=== PATIENT | male | born 2000 | race Caucasian/White ===

== ENCOUNTER 2020-05-19 14:12 | Outpatient (CLI) | payer BC, SELFPAY ==
--- NOTE | ~2020-05-19 | XR_ITS ---
XR chest 2V DATE: 05/19/2020 14:52 INDICATION: Night sweats, fatigue, body aches TECHNIQUE: PA and lateral views COMPARISON: None FINDINGS: Bilateral hyperinflation. No pulmonary infiltrate or consolidation, pleural effusion or pul monary vascular congestion or pneumothorax. Normal heart size. No hilar or mediastinal enlargement. IMPRESSION: Bilateral hyperinflation Reviewed, dictated and finalized at location A. IMPRESSION: Bilateral hyperinflation
[2020-05-19 15:50] LABS: Basophils Absolute Auto 0.1 K/mm3 (0.0-0.1); Basophils Percent Auto 0.9 % (0.2-1.2); Eosinophils Absolute Auto 0.3 K/mm3 (0-0.3); Eosinophils Percent Auto 3.8 % (0-4.4); Hematocrit 47.6 % (42.0-52.0); Hemoglobin 16.2 g/dL (14.0-18.0); Immature Granulocyte Absolute 0.01 K/mm3 (0.00-0.031); Immature Granulocyte Percent A 0.2 % (0-0.5); Lymphocytes Absolute Auto 2.07 K/mm3 (0.9-3.2); Lymphocytes Percent Auto 31.8 % (18.3-44.2); Mean Corpuscular Hemoglobin 30.7 pg (26-34); Mean Corpuscular Volume 90.2 fl (80-100); Mean Platelet Volume 9.6 fl (7.4-10.4); Monocytes Absolute Auto 0.7 K/mm3 (0.1-0.6); Monocytes Percent Auto 10.6 % (2.6-8.5); Neutrophils Absolute Auto 3.4 K/mm3 (1.3-6.7); Neutrophils Percent Auto 52.7 % (45.5-73.1); Platelet Count Result 306 k/mm3 (150-375); Red Blood Count 5.28 M/mm3 (4.6-6.20); Red Cell Distribution Width 12.4 % (11.5-14.5); White Blood Count 6.5 K/mm3 (4.5-10.0)
[2020-05-19 16:00] LABS: Alanine Aminotransferase 17 U/L (4-50); Albumin Level 5.2 g/dL (3.5-5.1); Alkaline Phosphatase 81 U/L (38-126); Anion Gap 10 mmol/L (8-16); Aspartate Amino Transferase 21 U/L (17-59); Blood Urea Nitrogen 13 mg/dL (9-20); Calcium 9.6 mg/dL (8.4-10.2); Carbon Dioxide 30 mmol/L (22-30); Chloride 101 mmol/L (98-107); Estimated Glomerular Filt Rate > 60; Glucose 81 mg/dL (75-110); Potassium 3.9 mmol/L (3.4-5.0); Sodium 141 mmol/L (137-145)
[2020-05-19 16:04] LABS: Immunoglobulin G 1100 mg/dL (700-1600); Immunoglobulin M 86 mg/dL (40-230)
== END 2020-05-19 14:13 | disposition home or self-care (01) ==
PROVIDERS: PCP Physician Assistant; Visit Provider Physician Assistant
DX: R53.83 Other fatigue (principal); R61 Generalized hyperhidrosis; R51 Headache; R91.8 Other nonspecific abnormal finding of lung field
CPT/HCPCS: 36415; 71046; 80053; 82784; 84443; 85025

== ENCOUNTER 2020-05-20 12:43 | Outpatient (CLI) | payer BC, SELFPAY ==
[2020-05-20 14:06] LABS: Iron 254 ug/dL (49-181)
[2020-05-20 23:21] LABS: Folic Acid 13.3 ng/mL (2.76->20)
[2020-05-24 15:33] LABS: EBV Nuclear Ab Interpretation Past; EBV Virus Capsid Ag IgM Ab <36.00 U/mL (<36.00)
== END 2020-05-20 12:44 | disposition home or self-care (01) ==
PROVIDERS: PCP Physician Assistant; Visit Provider Physician Assistant
DX: R53.83 Other fatigue (principal); R51 Headache
CPT/HCPCS: 36415; 82607; 82746; 83540; 84436; 86664; 86665

== ENCOUNTER 2020-07-19 16:39 | Emergency (ER) | payer BC, SELFPAY ==
[2020-07-19 16:48] VITALS: BP 138/76; PULSE 96; RESP 16; TEMP 37.6; O2SAT 99
--- NOTE | 2020-07-19 16:52 | ED.URI ---
HPI - URI/Sore Throat General Chief Complaint: Upper Respiratory Infection Stated Complaint: cough headache and sore throat Source: patient Mode of arrival: ambulatory Limitations: no limitations History of Present Illness HPI Narrative: Patient is a 20-year-old male who presents complaining of sore throat, cough, congestion and headache x2 days. He denies taking [id number] medications for relief. He denies known exposure to Covid. Patient in no acute distress MD elicited complaint: cough, sore throat and other Related Data Home Medications Medication Instructions Recorded Confirmed No Home Medications 07/19/20 07/19/20 Allergies Allergy/AdvReac Type Severity Reaction Status Date / Time No Known Allergies Allergy Verified 07/19/20 16:59 Review of Systems Review of Systems: Narrative: CONSTITUTIONAL: Denies fever, chills, or sweats. EYES: Denies visual changes, redness, or discharge. ENT: Denies rhinorrhea, congestion, sore throat, or otalgia. CARDIOVASCULAR: Denies chest pain, palpitations, or edema. RESPIRATORY: Reports cough, denies dyspnea. GASTROINTESTINAL: Denies abdominal pain, nausea, vomiting, or diarrhea. GENITOURINARY: Denies dysuria or hematuria. SKIN: Denies rash or itching. MUSCULOSKELETAL: Denies back pain, joint pain, or myalgia. NEUROLOGIC: Reports headache, denies numbness, dizziness, or weakness. PSYCHIATRIC: Denies anxiety or depression. [facility] Past Medical History Medical History (Updated 07/19/20 @ 17:06 by ASHLYN Fraser) Seasonal allergies Social History Social History (Updated 07/19/20 @ 16:56 by ASHLYN Fraser) Smoking status: Never smoker Alcohol intake: never Substance use: never Living arrangements: with family Exam Narrative: Exam Narrative: GENERAL: Well-appearing, well-nourished, and in no acute distress. HEAD: Normocephalic, atraumatic. EYES: No redness or drainage. ENT: Mucous membranes pink and moist. Throat normal mild erythema. Uvula midline. NECK: AROM. Supple. No lymphadenopathy. CHEST: No respiratory distress. EXTREMITIES: Normal range of motion. SKIN: Warm, dry, no rash. NEURO: No focal deficits. Alert and oriented x3. Gait steady. PSYCH: Normal affect. No signs of depression or anxiety. Course Vital Signs Vital signs: Vital Signs Temperature 37.6 C 07/19/20 16:48 Pulse Rate 96 07/19/20 16:48 Respiratory Rate 16 07/19/20 16:48 Blood Pressure 138/76 07/19/20 16:48 Pulse Oximetry 99 07/19/20 16:48 Temperature 37.6 C 07/19/20 16:48 Pulse Rate 96 07/19/20 16:48 Respiratory Rate 16 07/19/20 16:48 Blood Pressure 138/76 07/19/20 16:48 Pulse Oximetry 99 07/19/20 16:48 Reviewed. Patient has been instructed to follow-up with his PCP regarding his blood pressure. MDM - URI/Sore Throat MDM Narrative Medical decision making narrative: Patient's influenza and rapid strep are negative. Discussed with patient the need for Covid testing at this time. Patient of the need for quarantine until Covid testing and results completed. Patient is stable for discharge to home with outpatient follow-up as needed. Differential Diagnosis Differential diagnosis: Likely upper respiratory infection, sinusitis, viral infection, influenza and pharyngitis Critical Care Time Critical Care Time Critical Care Time: No Discharge Plan Discharge Clinical Impression: Encounter for screening laboratory testing for COVID-19 virus Upper respiratory infection Qualifiers: URI type: unspecified URI Qualified Code(s): J06.9 - Acute upper respiratory infection, unspecified Patient Disposition: Home, Self-Care Condition: Stable Instructions: Antibiotic Form Additional Instructions: You may take Tylenol or ibuprofen for pain. Please stay well-hydrated. Covid testing has been ordered. Quarantine until Covid testing is completed. Prescriptions: No Action No Home Medications RF: 0 Other
== END 2020-07-19 17:10 | disposition home or self-care (01) ==
PROVIDERS: Emergency Provider Nurse Practitioner; PCP Physician Assistant
DX: Z20.828 Contact with and (suspected) exposure to other viral communicable diseases (principal); J06.9 Acute upper respiratory infection, unspecified
CPT/HCPCS: 87081; 87804; 87880; 99213; G0463

== ENCOUNTER 2020-07-21 06:51 | Outpatient (NON) | payer BC, SELFPAY ==
[2020-07-22 00:29] LABS: SARS-CoV-2 RNA PCR Negative
== END 2020-07-21 06:52 ==
LOC: ANHCOVIDDT 07:00
PROVIDERS: PCP Physician Assistant; Visit Provider Nurse Practitioner
DX: Z20.828 Contact with and (suspected) exposure to other viral communicable diseases (principal)
CPT/HCPCS: 87635; C9803; U0003

== ENCOUNTER 2020-08-05 11:32 | Emergency (ER) | payer BC, SELFPAY | END 2020-08-05 11:34 | disposition left against medical advice (07) | LOC: EXPBETH 11:38 | PROVIDERS: Emergency Provider Nurse Practitioner; PCP Physician Assistant | DX: Z53.21 Procedure and treatment not carried out due to patient leaving prior to being seen by health care provider (principal) | CPT/HCPCS: 99199 ==

== ENCOUNTER 2020-08-05 12:02 | Emergency (ER) | payer BC, SELFPAY ==
--- NOTE | ~2020-08-05 | XR_ITS ---
EXAMINATION: XR chest 1V portable 08/05/2020 13:19 INDICATION: Chest pain, cough and shortness of breath PROCEDURE: AP portable chest COMPARISON: 05/19/2020 FINDINGS: The lungs are clear. The cardiomediastinal silhouette is within normal limits. There are no pleural effusions. There is no pneumothorax suspected. IMPRESSION: 1: NO ACUTE CARDIOPULMONARY DISEASE. Reviewed, dictated and finalized at location A. 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
--- NOTE | 2020-08-05 12:13 | ED.CHESTPAIN ---
HPI - Chest Pain General Chief Complaint: Unspecified Stated Complaint: Upper chest pressure, exposed to covid Time Seen by Provider: 08/05/20 12:13 Source: patient Mode of arrival: ambulatory Limitations: no limitations History of Present Illness HPI narrative: Patient is a 20-year-old male who was referred here for an urgent care after he tried to be evaluated today for chest pain. Patient reports that he has had chest pain which is been intermittent over the past 4 days. He reports mild chest pressure over his entire chest. No associated shortness of breath, he does report a dry cough. He reports mild congestion. He denies fever, chills, nausea, vomiting or diarrhea. No loss of sense of taste or smell. Patient's mother was diagnosed with Covid 10 days ago, patient does live with her. He denies any radiation of the pain into his jaw, shoulder, back or abdomen. He denies any flank pain or severe myalgias. Patient states the pain has been present most of the day today. He denies pain with deep inspiration. No history of coagulopathy. No history of cardiac problems. No history of sudden cardiac in the family. Negative Covid test, 2 in May, most recently - July 21. Related Data Home Medications Medication Instructions Recorded Confirmed No Home Medications 07/19/20 07/19/20 Allergies Allergy/AdvReac Type Severity Reaction Status Date / Time No Known Allergies Allergy Verified 07/19/20 16:59 Review of Systems Review of Systems: Narrative: CONSTITUTIONAL: Denies fever, chills, or sweats. EYES: Denies visual changes, redness, or discharge. ENT: Reports rhinorrhea and congestion CARDIOVASCULAR: Reports chest pain without palpitations or edema RESPIRATORY: Reports dry cough without shortness of breath GASTROINTESTINAL: Denies abdominal pain, nausea, vomiting, or diarrhea. GENITOURINARY: Denies dysuria or hematuria. SKIN: Denies rash or itching. MUSCULOSKELETAL: Denies back pain, joint pain, or myalgia. NEUROLOGIC: Denies headache, numbness, or weakness. [facility] Past Medical History Medical History (Updated 08/05/20 @ 13:32 by Codi Camacho MD) Encounter for screening laboratory testing for COVID-19 virus Seasonal allergies Sore throat Social History Social History (Updated 08/05/20 @ 12:34 by Codi Camacho MD) Smoking status: Current every day smoker Tobacco type: e-cigarettes/vaping Alcohol intake: never Substance use: never Living arrangements: with family Gender identity (if verbalized by the patient): Male Exam Narrative: Exam Narrative: GENERAL: Awake, alert, conversant HEAD: Normocephalic, atraumatic. EYES: PERRLA and EOMI. ENT: Nares clear, no rhinorrhea or epistaxis. Mucous membranes moist. NECK: Supple. CHEST: No respiratory distress, breathing even and non labored, no reproducible chest wall pain, lungs are clear to auscultation bilaterally HEART: Regular rate, sinus rhythm, no murmur ABDOMEN:Non distended, non tender EXTREMITIES: Normal range of motion. No edema. SKIN: Warm, dry, no rash. NEURO:No focal deficits. Alert and oriented x3 Course Vital Signs Vital signs: Vital Signs Temperature 37.9 C H 08/05/20 12:21 Pulse Rate 96 08/05/20 12:21 Respiratory Rate 20 08/05/20 12:21 Blood Pressure 130/84 08/05/20 12:21 Pulse Oximetry 100 08/05/20 12:21 Temperature 37.9 C H 08/05/20 12:21 Pulse Rate 96 08/05/20 12:21 Respiratory Rate 20 08/05/20 12:21 Blood Pressure 130/84 08/05/20 12:21 Pulse Oximetry 100 08/05/20 12:21 MDM - Chest Pain MDM Narrative Medical decision making narrative: Patient presenting with chest pain that seems very atypical. No pleuritic pain or shortness of breath. No anginal type equivalents given history. Patient is low risk given his heart score. Patient may have underlying Covid infection given he is nearly febrile today. No severe tachycardia, no pleuritic pain or hypoxia. Chest x-ray sh
[2020-08-05 12:21] VITALS: BP 130/84; PULSE 96; RESP 20; TEMP 37.9; O2SAT 100
--- NOTE | 2020-08-05 12:31 | ECG_ITS ---
Measurements Intervals [place] Rate: 78 P: 76 AL: 134 QRS: 88 QRSD: 108 T: 62 QT: 357 QTc: 408 Interpretive Statements SINUS RHYTHM WITH SINUS ARRHYTHMIA BASELINE ARTIFACT- I, II, AVR, AVL, V1 NORMAL ECG Electronically Signed On 08-06-2020 8:41:31 [employer]ARP [employer]ARTER by Florin Hartmann D.O.
[2020-08-05 12:46] LABS: Basophils Absolute Auto 0.1 K/mm3 (0.0-0.1); Basophils Percent Auto 1.3 % (0.2-1.2); Eosinophils Absolute Auto 0.5 K/mm3 (0-0.3); Hematocrit 45.5 % (42.0-52.0); Hemoglobin 15.7 g/dL (14.0-18.0); Immature Granulocyte Absolute 0.01 K/mm3 (0.00-0.031); Immature Granulocyte Percent A 0.1 % (0-0.5); Lymphocytes Absolute Auto 2.29 K/mm3 (0.9-3.2); Lymphocytes Percent Auto 34.3 % (18.3-44.2); Mean Corpuscular HGB Conc 34.5 g/dl (32-36); Mean Corpuscular Hemoglobin 30.3 pg (26-34); Mean Corpuscular Volume 87.8 fl (80-100); Monocytes Absolute Auto 0.7 K/mm3 (0.1-0.6); Monocytes Percent Auto 10.3 % (2.6-8.5); Neutrophils Absolute Auto 3.1 K/mm3 (1.3-6.7); Platelet Count Result 295 k/mm3 (150-375); Red Blood Count 5.18 M/mm3 (4.6-6.20); Red Cell Distribution Width 11.9 % (11.5-14.5); White Blood Count 6.7 K/mm3 (4.5-10.0)
[2020-08-05 12:57] LABS: Prothrombin Time 13.8 Seconds (11.1-14.7)
[2020-08-05] MEDS: ASPIRIN 81 MG CHEWABLE TABLET 324 MG PO (12:57)
[2020-08-05] MEDS: ACETAMINOPHEN 500 MG TABLET 1000 MG PO (12:57)
[2020-08-05 13:00] LABS: Alanine Aminotransferase 15 U/L (4-50); Albumin Level 5.2 g/dL (3.5-5.1); Alkaline Phosphatase 77 U/L (38-126); Anion Gap 15 mmol/L (8-16); Aspartate Amino Transferase 22 U/L (17-59); Bilirubin,Total 0.7 mg/dL (0.2-1.3); Blood Urea Nitrogen 10 mg/dL (9-20); Calcium 9.8 mg/dL (8.4-10.2); Carbon Dioxide 27 mmol/L (22-30); Chloride 101 mmol/L (98-107); Estimated CRCL calculation 123 ml/min; Estimated Glomerular Filt Rate > 60; Glucose 113 mg/dL (75-110); Potassium 3.6 mmol/L (3.4-5.0); Sodium 143 mmol/L (137-145)
[2020-08-05 13:03] VITALS: PULSE 85; RESP 19; O2SAT 92
[2020-08-05 13:10] LABS: Troponin I < 0.012 ng/mL (0.000-0.034)
[2020-08-05 13:17] VITALS: PULSE 78; RESP 20; O2SAT 98
[2020-08-05 13:43] VITALS: BP 105/67; PULSE 76; RESP 17; TEMP 36.6; O2SAT 98
[2020-08-07 17:05] LABS: SARS-CoV-2 RNA PCR Negative
== END 2020-08-05 13:48 | disposition home or self-care (01) ==
PROVIDERS: Emergency Provider Emergency Medicine; PCP Physician Assistant
DX: R07.89 Other chest pain (principal); Z20.828 Contact with and (suspected) exposure to other viral communicable diseases; F17.290 Nicotine dependence, other tobacco product, uncomplicated
CPT/HCPCS: 36415; 71045; 80053; 84484; 85025; 85610; 85730; 87635; 93005; 99283; A9270; C9803; U0003

== ENCOUNTER 2024-07-22 18:56 | Emergency (ER) | payer BC, SELFPAY ==
--- NOTE | ~2024-07-22 | XR_ITS ---
CHEST RADIOGRAPH, PA AND LATERAL CLINICAL HISTORY: cough fatigue . COMPARISON: 08/05/2020 and 05/19/2020 TECHNIQUE: PA and lateral views of the chest. FINDINGS The cardiomediastinal silhouette is unremarkable. The lungs are clear. Visualized osseous structures and soft tissues are unremarkable. IMPRESSION: No focal infiltrate or effusion. Reviewed, dictated and finalized at location A. 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
[2024-07-22 19:00] VITALS: BP 156/70; PULSE 90; RESP 18; TEMP 37.2; O2SAT 100
--- NOTE | 2024-07-22 19:04 | ED.URI ---
HPI - URI/Sore Throat General Chief Complaint: Upper Respiratory Infection Stated Complaint: cough/chest congestion/fever History of Present Illness HPI Narrative: 24-year-old male presented for complaint of sore throat for 1 week started with a cough for the last 2 days. Reports wheezing and fatigue today. Denies shortness of breath, cp, palpitations, nausea, vomiting, diarrhea, fevers or chills. Took Advil for symptoms. Related Data Allergies Allergy/AdvReac Type Severity Reaction Status Date / Time No Known Allergies Allergy Verified 07/22/24 19:27 Review of Systems Review of Systems: CONSTITUTIONAL: Denies body aches, fever, chills, or sweats. EYES: Denies visual changes, redness, or discharge. ENT: Reports sore throat Denies rhinorrhea, congestion, or otalgia. CARDIOVASCULAR: Denies chest pain, palpitations, or edema. RESPIRATORY: reports cough Denies dyspnea. GASTROINTESTINAL: Denies abdominal pain, nausea, vomiting, or diarrhea. SKIN: Denies rash NEUROLOGIC: Denies headache PMFSH Past Medical History Medical History Encounter for screening laboratory testing for COVID-19 virus Seasonal allergies Sore throat Social History Social History Smoking status: Current every day smoker Tobacco type: e-cigarettes/vaping Alcohol intake: never Substance use: never Living arrangements: with family Gender identity (if verbalized by the patient): Male Exam Narrative: GENERAL: well-appearing, no acute distress. EYES: conjunctivae clear ENT: Mucous membranes moist. TM pearly garcia with normal light reflex bilaterally; no tragal tenderness. Oropharynx erythematous without lesions. Tonsils enlarged and without exudate. No drooling, no hoarseness, no trismus, uvula midline. No tripod positioning, hot potato voice, or soft palate swelling. NECK: Supple. No lymphadenopathy CHEST: Clear to auscultation, breath sounds equal. No respiratory distress, speaks in full sentences. HEART: Regular rate and rhythm. No murmur heard. SKIN: Warm, dry, no rash. NEURO: Alert and oriented x3. Course Course Emergency Course: Patient is aware of diagnosis, understands and agrees to treatment plan. Anticipatory guidance given. Patient agrees to follow-up as directed and is aware of reasons to seek care at the emergency department. Portions of this record may have been created with voice recognition software Level of Care: Express Care Visit Vital Signs Vital signs: Vital Signs Temperature 98.9 F 07/22/24 19:00 Pulse Rate 90 07/22/24 19:00 Respiratory Rate 18 07/22/24 19:00 Blood Pressure 156/70 H 07/22/24 19:00 Pulse Oximetry 100 07/22/24 19:00 Oxygen Delivery Room Air 07/22/24 19:00 Temperature 98.9 F 07/22/24 19:00 Pulse Rate 90 07/22/24 19:00 Respiratory Rate 18 07/22/24 19:00 Blood Pressure 156/70 H 07/22/24 19:00 Pulse Oximetry 100 07/22/24 19:00 Oxygen Delivery Room Air 07/22/24 19:00 MDM - URI/Sore Throat MDM Narrative Medical decision making narrative: Neg strep result reviewed with pt and rx's. Pt has waited over one hour for results of CXR and would like to leave and be notified of the results when they are available. He will start abx if pna is confirmed. Advise supportive treatments and s/s to go to the ER. Patient is appropriate for outpatient treatment and follow-up. Differential Diagnosis Differential diagnosis: Likely upper respiratory infection, sinusitis, viral infection, bronchitis, pharyngitis and other (pneumonia ) Lab Data Labs: Lab Results 07/22/24 Range/Units 19:08 POC Grp A Strep Screen Negative (Negative) Discharge Plan Discharge Clinical Impression: Bronchitis Patient Disposition: Home, Self-Care Condition: Stable Instructions: Antibiotic Form, Acute Bronchitis (ED) Additional Instructions: Rapid strep swab was negative today if symptoms are due to a viral illness, it is not treated with antibiotics. Viral symptoms can be present for up to 10-14 days. Recommend Flonase spray and Zyrtec for sinus congestion Cough syrup may cause drowsiness; avoid driving or take it at night time. Tylenol every 8 hours as needed for pain/fever Soft foods, cool liquids, warm tea. Gargle with warm saltwater twice a day. Chloraseptic spray and throat lozenges. Rest and stay hydrated. You will be called with the result of the chest xray --Follow up with your PCP --Go to the ER immediately if you cannot swallow your saliva, trouble breathing/wheezing, throat swelling, pain is persistent and severe Prescriptions: New amoxicillin 500 mg tablet 1,000 mg PO BID 7 Days Qty: 28 0RF prednisone 50 mg tablet 50 mg PO DAILY Qty: 5 0RF Follow-up/Referrals: Reina,BRONSON Calix [Primary Care Provider] - Time of Disposition: 20:41
[2024-07-22 19:19] LABS: EDSTREPNEGPOS1 Negative (Negative)
== END 2024-07-22 20:46 | disposition home or self-care (01) ==
PROVIDERS: Emergency Provider Nurse Practitioner Family; PCP Physician Assistant
DX: J40 Bronchitis, not specified as acute or chronic (principal); F17.290 Nicotine dependence, other tobacco product, uncomplicated
CPT/HCPCS: 71046; 87081; 87880; 99213; G0463

== ENCOUNTER 2024-08-29 17:03 | Emergency (ER) | payer BC, SELFPAY ==
[2024-08-29 17:14] VITALS: BP 133/79; PULSE 94; RESP 20; TEMP 37.1; O2SAT 99
[2024-08-29 17:47] LABS: EDCOVIDSCREEN Negative (Negative); EDINFLUASCREEN Negative (Negative); EDINFLUBSCREEN Positive (Negative); EDSTREPNEGPOS1 Negative (Negative)
--- NOTE | 2024-08-29 17:47 | ED_ITS ---
HPI - URI/Sore Throat General Chief Complaint: Upper Respiratory Infection Stated Complaint: fever/cough/throat/aches Time Seen by Provider: 08/29/24 17:47 Source: patient and RN notes reviewed Mode of arrival: ambulatory Limitations: no limitations History of Present Illness HPI Narrative: 24 y/o male presented for complaint of headache, body aches, sinus pressure/congestion, sore throat, cough, fever/chills. onset yesterday. Taking [place] for symptoms. Denies sob, wheezing, n/v/d. MD elicited complaint: cough Related Data Home Medications ?Medication ?Instructions ?Recorded ?Confirmed ?Last Taken ?Type No Home Medications 08/29/24 08/29/24 Unknown History Allergies Allergy/AdvReac Type Severity Reaction Status Date / Time No Known Allergies Allergy Verified 08/29/24 17:30 Review of Systems Review of Systems: Per [facility] Past Medical History Medical History Sore throat Encounter for screening laboratory testing for COVID-19 virus Seasonal allergies Social History Social History Smoking status: Current every day smoker Tobacco type: e-cigarettes/vaping Alcohol intake: never Substance use: never Living arrangements: with family Gender identity (if verbalized by the patient): Male Exam Narrative: GENERAL: Ill-appearing, nontoxic no acute distress. EYES: PERRLA, conjunctivae clear ENT: Mucous membranes moist. TM pearly garcia with dull light reflex bilaterally; no tragal tenderness. Oropharynx erythematous without lesions or exudate, no drooling, no hoarseness, no trismus, uvula midline. No tripod positioning, muffled voice, soft palate or pharyngeal wall bulging NECK: Supple. No lymphadenopathy CHEST: Clear to auscultation, breath sounds equal. No wheezing, rhonchi, rales, or stridor. No respiratory distress, speaks in full sentences. HEART: Regular rate and rhythm. No murmur heard. SKIN: Warm, dry, no rash. NEURO: Alert and oriented x3. PSYCH: Normal mood and affect Course Course Emergency Course: Patient is aware of diagnosis, understands and agrees to treatment plan. Anticipatory guidance given. Patient agrees to follow-up as directed and is aware of reasons to seek care at the emergency department. Portions of this record may have been created with voice recognition software Level of Care: Express Care Visit Vital Signs Vital signs: Vital Signs Temperature 98.8 F 08/29/24 17:14 Pulse Rate 94 08/29/24 17:14 Respiratory Rate 20 08/29/24 17:14 Blood Pressure 133/79 08/29/24 17:14 Pulse Oximetry 99 08/29/24 17:14 Oxygen Delivery Room Air 08/29/24 17:14 Temperature 98.8 F 08/29/24 17:14 Pulse Rate 94 08/29/24 17:14 Respiratory Rate 20 08/29/24 17:14 Blood Pressure 133/79 08/29/24 17:14 Pulse Oximetry 99 08/29/24 17:14 Oxygen Delivery Room Air 08/29/24 17:14 reviewed MDM - URI/Sore Throat MDM Narrative Medical decision making narrative: POS flu. Discussed physical exam findings. Advised supportive measures and signs/symptoms to go to the ER. Pt is appropriate for outpt treatment and f/u. Differential Diagnosis Differential diagnosis: Likely upper respiratory infection, sinusitis and viral infection Lab Data Labs: Lab Results 08/29/24 Range/Units 17:20 POC Influenza A Ag Pending POC Influenza B Ag Pending POC SARS CoV-2 Ag Pending POC Grp A Strep Screen Pending Discharge Plan Discharge Clinical Impression: Influenza Patient Disposition: Home, Self-Care Condition: Stable Instructions: Influenza (ED) Additional Instructions: Influenza positive You should avoid crowds until you are fever free for 24 hours without the use of fever reducing medications, or the symptoms are improved Rest. Drink plenty of fluids. Tylenol 1000mg every 8 hours as needed for pain/fever Recommend Flonase spray and Zyrtec (or Claritin/Shonda) for sinus pressure/congestion over the counter Cough syrup may cause drowsiness; avoid driving or take it at night time. Follow up with your primary care provider as needed Go to the ER for worsening symptoms or concerns Patient Language: Macedonian Prescriptions: No Action No Home Medications Follow-up/Referrals: Reina,BRONSON Calix [Primary Care Provider] - Time of Disposition: 17:52
== END 2024-08-29 17:55 | disposition home or self-care (01) ==
PROVIDERS: Emergency Provider Nurse Practitioner Family; PCP Physician Assistant
DX: J11.1 Influenza due to unidentified influenza virus with other respiratory manifestations (principal); F17.290 Nicotine dependence, other tobacco product, uncomplicated; Z20.822 Contact with and (suspected) exposure to COVID-19
CPT/HCPCS: 87081; 87426; 87804; 87880; 99213; G0463